=== PATIENT | male | born 1955 | race Caucasian/White ===

== ENCOUNTER → 2017-01-10 | Emergency (ER) | payer MEDICARE ==
[~2017-01-10] VITALS: Ht 172.7 cm; Wt 136.0 kg
[~2017-01-10] MED LIST: ASPI81TA42 PO; ATOR80TA PO; CEPH-507 PO; CEPH500C PO; CLIN-78 PO; CLPD75T PO; EZET10TA5 PO; FERR325T36 PO; FERR325T5 PO; FRSM40T GT; FURO80TA3 PO; HYDR-3702 PO; HYDROcodone/APAP 5 MG/325 MG (NORCO) TAB PO ONE; INSU100I14 SQ; INSU100V32 SQ; INSULINS; LEVO500T80 PO; LISI2.5T PO; LISI5TAB14 PO; METO-270 PO; MTP50T PO; OMEP20TA PO; OMEP40CA36 PO; ONDAN4ODT PO; RANI150C4 PO; SPRN25T PO; [UNRECOGNIZED DRUG - CODE] TP; [UNRECOGNIZED DRUG - OTHER]
[2017-01-10 14:32] VITALS: BP 159/61
--- NOTE | 2017-01-10 15:42 | Diagnostic Imaging Report ---
INDICATION: Fall. Rib pain. COMPARISON: None. FINDINGS: Frontal radiographic view of the chest demonstrates normal cardiac silhouette and pulmonary vasculature. Sternotomy wires and left-sided AICD are noted. Lungs are clear and show no focal consolidations, large effusion, nor pneumothoraces. There is aortic atherosclerosis. Two dedicated radiographic views of the left ribs were obtained. No healing or displaced left-sided rib fractures are identified. No other acute appearing bony abnormalities are seen. IMPRESSION: 1. No acute cardiopulmonary process. 2. No healing or displaced left-sided rib fractures. Dictated by: Dictated on workstation # [id number]
== END | disposition home or self-care (01) ==
LOC: EDUNIT# 14:17 → ED 14:20
DX: S20.222A Contusion of left back wall of thorax, initial encounter (principal); W10.0XXA Fall (on)(from) escalator, initial encounter; Y93.89 Activity, other specified; Y92.009 Unspecified place in unspecified non-institutional (private) residence as the place of occurrence of the external cause
CPT/HCPCS: 71101; 99282; A9270; 99283